=== PATIENT | male | born 1990 | race Caucasian/White ===

== ENCOUNTER 2017-07-18 18:42 | Emergency (ER) | payer SELFPAY ==
[~2017-07-18] VITALS: Ht 190.5 cm; Wt 89.0 kg
[2017-07-18] MEDS ORDERED: ZIPRASIDONE 20 MG INJ IM ONE (19:00)
[2017-07-18] MEDS ORDERED: PLEASE ENTER HEIGHT AND WEIGHT MC SCH (19:00)
[2017-07-18] MEDS ORDERED: PLEASE ENTER ALLERGIES MC SCH ×2 (19:00)
[2017-07-18 19:14] LABS: HEMATOCRIT 47.9 % (39.2-51.8); HEMOGLOBIN 16.3 g/dL (13.7-18.0); WHITE BLOOD COUNT 6.7 x10^3/uL (3.4-10)
[2017-07-18 19:19] LABS: ASPARTATE AMINO TRANSFERASE 40 U/L (15-37); BLOOD UREA NITROGEN 12 mg/dL (7-18)
[2017-07-18 19:26] LABS: ACETAMINOPHEN < 2 mcg/mL (10-30)
[2017-07-18 20:21] LABS: DAU SCREEN DISCLAIMER
[2017-07-18 21:11] VITALS: BP 133/78
== END 2017-07-18 21:14 | disposition home or self-care (01) ==
LOC: ED 20:41
DX: F15.150 Other stimulant abuse with stimulant-induced psychotic disorder with delusions (principal)
CPT/HCPCS: 36415; 80053; 80307; 80329; 85025; 99284; G0479; G0480